=== PATIENT | male | born 1945 | race Caucasian/White ===

== ENCOUNTER → 2016-05-02 | Outpatient (CLI) | payer MEDICARE ==
[2016-05-02 09:50] LABS: Basophils % (A) 1 %; CH 32.6; CHCM 33.8; Eosinophils # (A) 0.1 k/uL (0-0.7); Eosinophils % (A) 2 %; HCT 47.9 % (39.0-53.0); HDW 2.43; HGB 15.5 gm/dL (13.0-17.5); Luc # (Auto) 0.08; Luc % (Auto) 1; Lymphocytes % (A) 17 %; MCH 31.3 pg (25.0-35.0); MCHC 32.4 g/dL (31.0-37.0); MCV 96.8 fL (80.0-100.0); Mean Platelet Volume 7.9; Monocytes # (A) 0.3 k/uL (0-1.0); Monocytes % (A) 6 %; Neutrophils # (A) 4.3 k/uL (1.3-7.7); Neutrophils % (A) 74 %; RBC 4.95 m/uL (4.30-5.90); RDW 12.7 % (11.5-15.5); WBC 5.7 k/uL (3.8-10.6); WBC (Perox) 5.62
[2016-05-02 10:52] LABS: ALT 38 U/L (21-72); AST 21 U/L (17-59); Alkaline Phosphatase 62 U/L (38-126); Anion Gap 9 mmol/L; Blood Urea Nitrogen 18 mg/dL (9-20); C Reactive Protein <5.0 mg/L (<10.0); Calcium 9.4 mg/dL (8.4-10.2); Carbon Dioxide 28 mmol/L (22-30); Chloride 105 mmol/L (98-107); Cholesterol 119 mg/dL (<200); Creatine Kinase 100 U/L (55-170); Glucose 162 mg/dL (74-99); HDL Cholesterol 38 mg/dL (40-60); Non-African American GFR(MDRD) >60 (>60 ml/min/1.73 sqM); Sodium 142 mmol/L (137-145); Total Bilirubin 0.5 mg/dL (0.2-1.3); Total Protein 6.7 g/dL (6.3-8.2); Triglycerides 117 mg/dL (<150)
[2016-05-02 11:14] LABS: Prostate Specific Antigen 0.43 ng/mL (0.00-4.00)
[2016-05-02 12:38] LABS: Erythrocyte Sedimentation Rate 2 mm/hr (0-15)
== END | disposition home or self-care (01) ==
LOC: LABWHC1 08:59
PROVIDERS: ATTEND Internal Medicine
DX: E11.9 Type 2 diabetes mellitus without complications (principal); E78.5 Hyperlipidemia, unspecified; I11.0 Hypertensive heart disease with heart failure; E55.9 Vitamin D deficiency, unspecified
CPT/HCPCS: 36415; 80053; 80061; 82306; 82550; 83036; 84153; 85025; 85652; 86140

== ENCOUNTER → 2016-09-01 | Outpatient (CLI) | payer MEDICARE ==
[2016-09-01 08:16] LABS: Hemoglobin A1C 6.9 % (4.2-6.1)
== END | disposition home or self-care (01) ==
LOC: LABWHC1 07:15
PROVIDERS: ATTEND Internal Medicine
DX: E11.9 Type 2 diabetes mellitus without complications (principal); E78.5 Hyperlipidemia, unspecified; E55.9 Vitamin D deficiency, unspecified
CPT/HCPCS: 36415; 82306; 82947; 83036

== ENCOUNTER → 2016-12-25 | Outpatient (CLI) | payer MEDICARE ==
[2016-12-25 12:57] LABS: Hemoglobin A1C 6.9 % (4.2-6.1)
== END | disposition home or self-care (01) ==
LOC: LABWHC1 09:36
PROVIDERS: ATTEND Internal Medicine
DX: E11.9 Type 2 diabetes mellitus without complications (principal)
CPT/HCPCS: 36415; 82947; 83036

== ENCOUNTER → 2017-08-19 | Outpatient (CLI) | payer MEDICARE ==
[2017-08-19 19:05] LABS: Hemoglobin A1C 7.4 % (4.0-6.0)
== END ==
LOC: LABWHC1 08:18
PROVIDERS: ATTEND Internal Medicine
DX: E11.9 Type 2 diabetes mellitus without complications (principal)
CPT/HCPCS: 36415; 82947; 83036

== ENCOUNTER → 2017-12-03 | Outpatient (CLI) | payer MEDICARE | END | disposition home or self-care (01) | LOC: LABPAT 13:14 | PROVIDERS: ATTEND Orthopaedic Surgery | DX: Z01.812 Encounter for preprocedural laboratory examination (principal) | CPT/HCPCS: 87070 ==

== ENCOUNTER → 2017-12-09 | Outpatient (CLI) | payer MEDICARE ==
[2017-12-09 16:11] LABS: Appearance,Urine Clear (Clear); Bilirubin,Urine Negative (Negative); Blood,Urine Negative (Negative); Color,Urine Yellow; Glucose,Urine (UA) Negative (Negative); HCT 46.1 % (39.0-53.0); HGB 14.9 gm/dL (13.0-17.5); Ketones,Urine Negative (Negative); Leukocyte Esterase,Urine Negative (Negative); MCHC 32.2 g/dL (31.0-37.0); MCV 96.1 fL (80.0-100.0); Mean Platelet Volume 6.5; Nitrite,Urine Negative (Negative); PH, Urine 5.5 (5.0-8.0); Platelet Count 213 k/uL (150-450); Protein,Urine Negative (Negative); RDW 12.7 % (11.5-15.5); Specific Gravity,Urine 1.023 (1.001-1.035); Urobilinogen,Urine <2.0 mg/dL (<2.0); WBC 7.9 k/uL (3.8-10.6)
[2017-12-09 16:19] LABS: Partial Thromboplastin Time 23.6 sec (22.0-30.0)
[2017-12-09 16:33] LABS: ALT 29 U/L (21-72); AST 21 U/L (17-59); Albumin 4.3 g/dL (3.5-5.0); Alkaline Phosphatase 72 U/L (38-126); Anion Gap 12 mmol/L; Blood Urea Nitrogen 25 mg/dL (9-20); Calcium 9.9 mg/dL (8.4-10.2); Carbon Dioxide 27 mmol/L (22-30); Chloride 104 mmol/L (98-107); Glucose 137 mg/dL (74-99); Potassium 4.8 mmol/L (3.5-5.1); Sodium 143 mmol/L (137-145); Total Bilirubin 0.3 mg/dL (0.2-1.3); Total Protein 6.9 g/dL (6.3-8.2)
== END | disposition home or self-care (01) ==
LOC: LABPAT 15:25
PROVIDERS: ATTEND Orthopaedic Surgery
DX: Z01.812 Encounter for preprocedural laboratory examination (principal); M16.12 Unilateral primary osteoarthritis, left hip
CPT/HCPCS: 36415; 80053; 81003; 85027; 85610; 85730

== ENCOUNTER 2017-12-14 07:39 | Inpatient (IN) | payer MEDICARE ==
[2017-12-08 15:34] VITALS: BMI 26.6
[~2017-12-14 07:39] MED LIST: ACETAMINOPHEN TAB 500 MG TAB PO ONE; DEXAMETHASONE SOD PHOSPHATE 10 MG/ML 1 ML VIAL IV ONE; HYDROmorphone 0.5 MG/0.5 ML SYRINGE IVP PRN; ONDANSETRON 4 MG/2 ML VIAL IVP ONE; ROPIVACAINE 246.25 MG, EPINEPHrine 0.5 MG, KETOROLAC 30 MG, cloNIDine HCL/PF 80 MCG, WA... MISCELLANE ONE; TRANEXAMIC ACID 1,000 MG in SODIUM CHLORIDE 0.9% 50 ML IVPB ONE; ceFAZolin IN SWFI 2 GM/20 ML SYRINGE IVP ONE
[2017-12-14] MEDS ORDERED: LIDOCAINE 1% 20 ML VIAL (10MG/ML) FOR IV START INTRADERMA ONE (08:29)
[2017-12-14] MEDS: LACTATED RINGERS 1,000 ML IV SCH (08:29)
[2017-12-14 08:33] LABS: Glucose,Whole Blood 158 mg/dL (75-99)
[2017-12-14] MEDS ORDERED: HYDROcodone/APAP 5-325MG 1 EACH TAB PO PRN ×2 (09:08)
[2017-12-14] MEDS ORDERED: ONDANSETRON 4 MG/2 ML VIAL IVP PRN (09:08)
[2017-12-14] MEDS ORDERED: DIAZEPAM 5 MG TAB PO PRN ×2 (09:08)
[2017-12-14] MEDS ORDERED: hydrOXYzine PAMOATE 25 MG CAP PO PRN (09:08)
[2017-12-14] MEDS ORDERED: NALOXONE 0.4 MG/ML 1 ML VIAL IV PRN (09:08)
[2017-12-14] MEDS ORDERED: HYDROmorphone 1 MG/ML 1 ML SYRINGE IVP PRN ×3 (09:08)
[2017-12-14] MEDS ORDERED: MAGNESIUM HYDROXIDE 2,400 MG/10 ML CUP PO PRN (09:08)
[2017-12-14] MEDS ORDERED: diphenhydrAMINE 50 MG/ML 1 ML VIAL ONE (09:45)
[2017-12-14] MEDS ORDERED: SODIUM CHLORIDE 0.9% IRRIG 1,000 ML BTL IRRIGATION ONE (09:45)
[2017-12-14] MEDS ORDERED: SODIUM CHLORIDE 0.9% 100 ML BAG ONE (09:45)
[2017-12-14] MEDS ORDERED: HEPARIN SODIUM,PORCINE 10,000 UNIT/ML 1 ML VIAL ONE (09:45)
[2017-12-14] MEDS ORDERED: MIDAZOLAM 2 MG/2 ML VIAL ONE (09:45)
[2017-12-14] MEDS ORDERED: fentaNYL (PF) 50 MCG/ML 2 ML AMP ONE (09:45)
[2017-12-14] MEDS ORDERED: TRANEXAMIC ACID 1,000 MG/10 ML VIAL ONE (09:45)
[2017-12-14] MEDS ORDERED: ceFAZolin 3,000 MG in SODIUM CHLORIDE 0.9% IRRIGATIO 3,000 ML IRRIGATION ONE (10:32)
[2017-12-14] MEDS ORDERED: LACTATED RINGERS 1,000 ML IV ONE (11:16)
--- NOTE | 2017-12-14 11:27 | P.OP ---
Date of Procedure: 12/14/17 Preoperative Diagnosis: Severe osteoarthritis left hip Postoperative Diagnosis: Severe osteoarthritis left hip Procedure(s) Performed: Left total hip arthroplasty with a direct anterior approach Implants: Owens and nephew Polarstem size 7 standard Owens & Nephew R3, 3 hole acetabular shell, 52 mm Owens [employer] Nephew reflection 6.5 mm cancellus screw, 20 mm, 25 mm Owens [employer] Nephew R3, XLPE 20 acetabular liner Owens & Nephew Oxinium femoral head 36 m, +4 All components were press-fit. The articulation is Oxinium on polyethylene. Anesthesia: spinal Surgeon: Koko Roman Heavy Machinery Assembler #1: Kylee Aviles Estimated Blood Loss (ml): 250 (55 mL returned with Cell Saver) Pathology: other (Femoral head) Condition: stable Disposition: PACU Indications for Procedure: After failure of conservative treatment we discussed the surgical and nonsurgical treatment options at length. Patient wishes to proceed with a total hip arthroplasty with a direct anterior approach. Complications specific to this procedure were discussed at length, including but not limited to infection, leg length discrepancy, dislocation, and nerve injury. Patient is aware of all these complications and informed consent was obtained Operative Findings: The operative findings are consistent with severe osteoarthritis of the left hip Description of Procedure: Patient was seen and evaluated in the preoperative area, consent was reviewed, and the surgical site was marked with a skin marker. Patient was then brought to the operating room and given prophylactic antibiotics intravenously. 1 g of Tranexamic acid was also given. A spinal anesthetic was administered by the anesthesia department. The patient was then placed on the Bessemer table with the bony prominences well-padded. The hip area was then prepped and draped in usual sterile fashion. A universal timeout was then performed, which confirmed the patient's name, surgical site, ALLERGIES, and procedure being performed. Next the incision site was located at 1 cm distal and 1 cm lateral to the anterior superior iliac spine. The skin and subcutaneous tissues were sharply incised. Incision was carefully dissected down to the fascia overlying the tensor fascia salo muscle. This fascia was then incised in line with the incision. Next, using blunt finger dissection, the tensor fascia salo muscle was dissected off its investing fascia. The muscle was then carefully retracted laterally with a cobra retractor over the lateral neck of the femur. Next, the circumflex vessels were identified and cauterized using the AquaMantis device. The anterior hip capsule was then exposed. The capsule was then opened and an inverted T fashion. Cobra retractors were then placed intracapsularly. The proximal femur was then visualized. The femoral neck was then osteotomized appropriate level above the lesser trochanter. Small amount of traction was placed with the Bessemer table. A small wedge of bone was then removed from the remaining femoral head. Next, using a corkscrew femoral head was easily removed from the acetabulum. On gross visual inspection, the femoral head had complete loss of articular cartilage in multiple periarticular osteophytes. Attention was then turned to the acetabulum. the acetabulum was exposed and any remaining labrum was excised. Sequential reaming of the acetabulum was performed using fluoroscopic guidance. When the appropriate size was reached, a trial was then placed. The position and fit of the trial was checked with fluoroscopy. The trial was then removed. Then, using fluoroscopic guidance, the final implant was impacted at 20 of anteversion and 40 of abduction, and fully seated in the acetabulum. 2 screws were then placed in the acetabulum. Again fluoroscopy was used to check position of the screws. Next, the liner was then impacted, with a 20 elevated liner located in the anterior superior quadrant. Component locking was confirmed. Attention was then directed to the femur. With the aid of the Bessemer table, the femur was externally rotated to approximately 130, extended, and abducted under the opposite leg. A side hook was then placed under the proximal femur, and the side hook elevator was used to elevate the proximal femur. Retractors were then placed. A capsular release was performed, as well as a release of the conjoined tendon, which afforded excellent visualization of the proximal femur. Next, a box osteotome was used to lateralize the proximal femur. A ecommerce merchandising manager was then used to locate the femoral canal. Sequential broaching was then performed with appropriate size which afforded excellent fixation in the proximal femur. A trial was then placed with appropriate head and neck, and the hip was gently reduced with the aid of the Bessemer table. Fluoroscopy was then used to check position of the components, as well as to ensure equal leg lengths. The hip was then gently dislocated and the trials were then removed. Final implants were then impacted and the hip was again reduced. Final fluoroscopic x-rays confirmed that the components were in anatomic position, as well as equal leg lengths. The hip was also taken through range of motion, and found to be stable. The hip was then copiously irrigated with antibiotic solution with pulsatile lavage. The hip was then irrigated with Irrisept solution. The soft tissues were then injected with a ropivacaine solution, which consisted of 246.25 mg of ropivacaine, 0.5 mg of epinephrine, 30 mg of Toradol, 80 g of clonidine, and 48.45 mL of sterile water, for a total of 100 mL of fluid injected. A second dose of 1 g of Tranexamic acid was also given. the fascia was then closed with 2-0 strata fix suture. The subcutaneous tissue was closed with 3-0 Vicryl. The subcuticular tissue was closed with 3-0 strata fix suture. The skin was then closed with Dermabond glue and a sterile silver dressing. The patient was then transferred to the recovery room in stable condition. The assistant professor of spanish LUNA Liang was required due to the complexity of surgery, and the need for skilled surgical coordinator for positioning, draping, exposure, retraction, and closure of the wound.
--- NOTE | 2017-12-14 12:03 | XR ---
EXAMINATION TYPE: XR Hip Limited LT DATE OF EXAM: 12/14/2017 COMPARISON: NONE HISTORY: Postop TECHNIQUE: One view submitted. FINDINGS: There is a prosthetic hip in near anatomic alignment. There is soft tissue edema and emphysema. IMPRESSION: 1. Postoperative change. Appears in near-anatomic alignment.
[2017-12-14 12:14] LABS: Glucose,Whole Blood 175 mg/dL (75-99)
--- NOTE | 2017-12-14 14:05 | FL ---
Fluoroscopy History: LEFT HIP REPLACEMENT 1 MIN 1 SEC FLUORO
--- NOTE | 2017-12-14 17:31 | P.CONS ---
History of Present Illness - Reason for Consult Consult date: 12/14/17 Medical management - History of Present Illness Dictation on the consult date of service 12/14/[address] Koko guzman orthopedic surgeon. Patient status post elective left total hip arthroplasty. With the underlying advanced degenerative osteoarthritis 72 years old white male , has been seen by Dr. Koko moore with the pain in his left Hip and subsequently scheduled for elective surgery. Due to his decreased mobility and pain. Patient with a history of diabetes mellitus type 2 on metformin, however during his hospital postoperative will be on insulin to scale., He had also past history of hyperlipidemia. And history of advanced degenerative osteoarthritis mainly the hips and the spine. Postoperative anticoagulation currently aspirin 325 mg twice a day. Orthopedic surgeon added to his rehabilitation to avoid DVT. Med rec evaluated and sign. Pain medication and the comfort by the orthopedic team and he is currently on Mobic and tramadol. Orthopedic., Vital sign is stable. On examination patient sitting on the chair he had the surgery at 10 AM today this afternoon he has no ill effect he went to the bathroom walking with a walker and no abdominal pain no nausea no vomiting no hematochezia or hematemesis or melena on the review of system no pain in the hip. On the review of the note of Dr. Koko guzman orthopedic surgeon indicating that he had a patient have severe osteoarthritis of the left hip and he had left total hip arthroplasty with the direct anterior approach and will reason severe osteoarthritis of the left hip. Vital sign indicating temperature 97.6 and pulse rate 72 per minute regular respiratory rate 14 blood pressure 123/73 stable with a mean arterial pressure 89 his oxygen is 99% on 3 L. HEENT the head was normocephalic and atraumatic pupils equal reactive conjunctivae bowel was pink sclera was nonicteric oropharynx was negative her natural teeth the neck was supple no JVD no thyromegaly no lymphadenopathy trachea midline. Chest was clear auscultation percussion and the heart PMI in the fifth intercostal space normal S1 and S2 no gallop abdomen is soft positive bowel sounds and extremities no edema and he able to put his feet on the ground and able to walk there is no edema in his site of the incision and there is no edema of the left foot. And the pulses is intac Neurologically is stable no numbness no tingling of the feet. Status assessment: Status post left anterior total arthroplasty anterior approach done on 2017. #2 diabetes mellitus2 currently controlled with the continuation of CBG POC and covered with insulin to scale. Number #3 according to the monitor there is blood pressure dropped to 99/98/99, postoperative however subsequently at the time seen his blood pressure 123/73 it is unclear if that affected his kidney was not and we will be obtaining BMP in a.m. History of hyperlipidemia. Patient stable general condition postoperative. #2 probably continuing his home medication #3 he may resume the metformin tomorrow #4 orthopedic has been handling the DVT prophylaxis and anticoagulation. With the use of only aspirin twice a day 325 mg. Probably if patient doing well he may be able to go home. Thank you Dr. Koko moore, for letting me participate in the care of Calvinwali MÉNDEZ. Past Medical History Past Medical History: Diabetes Mellitus, Hyperlipidemia History of Any Multi-Drug Resistant Organisms: None Reported Past Surgical History: Joint Replacement Additional Past Surgical History / Comment(s): right hip, left knee, rt bunionectomy Past Anesthesia/Blood Transfusion Reactions: No Reported Reaction Smoking Status: Never smoker - Past Family History Father Family Medical History: Cancer Additional Family Medical History / Comment(s): prostate,thyroid Brother(s) Family Medical History: Cancer Additional Family Medical History / Comment(s): prostate Medications and Allergies Home Medications Medication Instructions Recorded Confirmed Type Aspirin [Adult Low Dose Aspirin EC] 81 mg PO DAILY 12/08/17 12/14/17 History Atorvastatin [Lipitor] 20 mg PO HS 12/08/17 12/14/17 History Glucosam/Isaac-Msm1/C/Jacky/Bosw 1 tab PO DAILY 12/08/17 12/14/17 History [Glucosamine-Chondroitin Tablet] Ibuprofen [Motrin Ib] 200 mg PO Q6H PRN 12/08/17 12/14/17 History Multivitamins, Thera [Multivitamin 1 tab PO DAILY 12/08/17 12/14/17 History (formulary)] metFORMIN HCL 1,000 mg PO BID 12/08/17 12/14/17 History Allergies Allergy/AdvReac Type Severity Reaction Status Date / Time hydrocodone AdvReac "makes me Verified 12/14/17 16:05 loopy" Physical Exam Vitals: Vital Signs Temp Pulse Pulse Resp BP BP Pulse Ox 12/14/17 16:36 97.6 F 72 14 123/73 12/14/17 15:45 68 16 98/52 99 12/14/17 15:15 63 16 99/63 99 12/14/17 14:45 61 16 98/55 98 12/14/17 14:15 56 L 100 H 99/50 100 12/14/17 14:00 60 16 100/51 100 12/14/17 13:45 59 L 16 99/52 95 12/14/17 13:30 59 L 16 92/53 99 12/14/17 13:15 55 L 16 90/52 99 12/14/17 13:00 59 L 16 92/51 99 12/14/17 12:36 93/52 12/14/17 12:31 60 16 88/46 98 12/14/17 12:15 57 L 16 96/54 98 12/14/17 12:00 60 16 93/49 97 12/14/17 11:45 97.4 F L 68 18 92/58 96 12/14/17 08:14 98.0 F 68 18 137/74 97 Intake and Output 12/14/17 12/14/17 12/14/17 06:59 14:59 22:59 Intake Total 801 600 Output Total 250 Balance 551 600 Intake: IV 801 600 Output: Estimated Blood Loss 250 Results Labs: Abnormal Lab Results - Last 24 Hours (Table) 12/14/17 12/14/17 Range/Units 08:25 12:12 POC Glucose (mg/dL) 158 H 175 H (75-99) mg/dL
[2017-12-14] MEDS: traMADol 50 MG TAB PO PRN (17:50)
[2017-12-14] MEDS: ceFAZolin IN SWFI 2 GM/20 ML SYRINGE IVP SCH (17:51)
[2017-12-14 18:13] LABS: Glucose,Whole Blood 209 mg/dL (75-99)
[2017-12-14] MEDS: SODIUM CHLORIDE 0.9% 1,000 ML IV SCH (18:19)
[2017-12-14] MEDS: metFORMIN 500 MG TAB PO SCH (18:22)
[2017-12-14] MEDS: INSULIN ASPART 100 UNIT/ML 1 ML 10 ML VIAL SQ SCH (18:23)
[2017-12-14 20:12] LABS: Glucose,Whole Blood 256 mg/dL (75-99)
[2017-12-14] MEDS: ASPIRIN 325 MG TAB PO SCH (20:29)
[2017-12-14] MEDS ORDERED: ATORVASTATIN 20 MG TAB PO SCH (21:00)
[2017-12-14] MEDS ORDERED: SENNOSIDES-DOCUSATE SODIUM 1 EACH TAB PO SCH (21:00)
[2017-12-15] MEDS: ceFAZolin IN SWFI 2 GM/20 ML SYRINGE IVP SCH (00:39)
[2017-12-15] MEDS: SODIUM CHLORIDE 0.9% 1,000 ML IV SCH (00:40)
[2017-12-15] MEDS: LACTATED RINGERS 1,000 ML IV SCH (05:41)
[2017-12-15] MEDS: traMADol 50 MG TAB PO PRN ×2 (06:04→12:34)
[2017-12-15 07:12] LABS: Glucose,Whole Blood 258 mg/dL (75-99)
[2017-12-15 07:44] LABS: Anion Gap 7 mmol/L; Blood Urea Nitrogen 18 mg/dL (9-20); Calcium 8.3 mg/dL (8.4-10.2); Carbon Dioxide 26 mmol/L (22-30); Chloride 103 mmol/L (98-107); Glucose 229 mg/dL (74-99); Potassium 4.1 mmol/L (3.5-5.1); Sodium 136 mmol/L (137-145)
[2017-12-15 07:49] VITALS: BP 129/63; PULSE 86; RESP 12; TEMP 98.5
[2017-12-15 07:54] LABS: Basophils % (A) 0 %; Eosinophils % (A) 0 %; HCT 33.4 % (39.0-53.0); Lymphocytes # (A) 0.7 k/uL (1.0-4.8); Lymphocytes % (A) 8 %; MCH 31.5 pg (25.0-35.0); MCHC 33.2 g/dL (31.0-37.0); MCV 94.8 fL (80.0-100.0); Mean Platelet Volume 6.7; Monocytes # (A) 0.5 k/uL (0-1.0); Monocytes % (A) 7 %; Neutrophils # (A) 6.6 k/uL (1.3-7.7); Neutrophils % (A) 84 %; Platelet Count 168 k/uL (150-450); RBC 3.52 m/uL (4.30-5.90); RDW 12.5 % (11.5-15.5); WBC 7.9 k/uL (3.8-10.6)
[2017-12-15 07:59] LABS: HGB 11.1 gm/dL (13.0-17.5)
[2017-12-15] MEDS: INSULIN ASPART 100 UNIT/ML 1 ML 10 ML VIAL SQ SCH ×2 (08:02→13:14)
[2017-12-15] MEDS: metFORMIN 500 MG TAB PO SCH (08:03)
[2017-12-15] MEDS ORDERED: MULTIVITAMINS, THERA 1 EACH TAB PO SCH (09:00)
[2017-12-15] MEDS ORDERED: MELOXICAM 7.5 MG TAB PO SCH (09:00)
[2017-12-15] MEDS: ASPIRIN 325 MG TAB PO SCH (09:01)
[2017-12-15 11:49] LABS: Glucose,Whole Blood 213 mg/dL (75-99)
--- NOTE | 2017-12-15 12:31 | P.PN ---
Subjective Progress Note Date: 12/15/17 This is a dictation on the progress note date of service 12/15/[address] Hood Cantrell FACP on the follow-up. Patient seen and evaluated today with the stable general condition and stable vital sign able to use a walker. On discharge exam. HEENT negative oropharynx is normal head was normocephalic and atraumatic Neck supple no JVD no thyromegaly no lymphadenopathy. Chest clear to auscultation percussion no wheezes no rhonchi's. Heart PMI in the fifth intercostal space normal S1 and S2 no gallop compensated with good perfusion to the lower extremities. Abdomen soft positive bowel sounds positive no tenderness in the 4 quadrants. Extremities: The left hip total arthroplasty with the anterior approach associated with some pain expected. No edema and normal dorsalis pedis and posterior tibial with good perfusion no calf tenderness on the left or the right. Neurologically: No lateralizing sign and ambulatory with walker secondary the total left hip arthroplasty. Assessment: #1 diabetes mellitus type 2 stable. #2 status post left total hip arthroplasty with the underlying advanced degenerative osteoarthritis and was done in the upper and anterior approach. #3 blood pressure is currently stable. Plan and recommendation. Clinically patient stable for discharge home with the association of the rehabilitation at home and for further follow-up with Dr. Koko moore orthopedic surgeon as outpatient. Orthopedic team will be taking care of the anticoagulation with the understanding patient on aspirin 325 mg twice a day versus other modality as Coumadin or novel anticoagulation as an requests result. We'll leave talk to the orthopedic. Also they will manage the pain control in the left hip post operative. 4 medical standpoint of view patient is ready to go home. Orthopedic decision. Objective - Vital Signs Vital signs: Vital Signs Temp 98.5 F 12/15/17 07:00 Pulse 86 12/15/17 07:00 Resp 12 12/15/17 07:00 BP 129/63 12/15/17 07:00 Pulse Ox 95 12/15/17 07:00 Intake & Output 12/14/17 12/15/17 12/15/17 18:59 06:59 18:59 Intake Total 1401 1725 Output Total 250 300 Balance 1151 1425 Weight 81.647 kg Intake: IV 1401 Intake, IV Titration 685 Amount Sodium Chloride 0.9% 1, 685 000 ml @ 65 mls/hr IV . [id number] [facility] Rx#:[id number] Oral 1040 Output: Urine 300 Estimated Blood Loss 250 Other: Voiding Method Toilet # Voids 1 3 - Labs CBC & Chem 7: 12/15/17 06:49 12/15/17 06:49 Labs: Abnormal Lab Results - Last 24 Hours (Table) 12/14/17 12/14/17 12/15/17 Range/Units 17:52 20:10 06:49 RBC 3.52 L (4.30-5.90) m/uL Hgb 11.1 L D (13.0-17.5) gm/dL Hct 33.4 L (39.0-53.0) % Lymphocytes # 0.7 L (1.0-4.8) k/uL Sodium (137-145) mmol/L Glucose (74-99) mg/dL POC Glucose (mg/dL) 209 H 256 H (75-99) mg/dL Calcium (8.4-10.2) mg/dL 12/15/17 12/15/17 12/15/17 Range/Units 06:49 07:08 11:45 RBC (4.30-5.90) m/uL Hgb (13.0-17.5) gm/dL Hct (39.0-53.0) % Lymphocytes # (1.0-4.8) k/uL Sodium 136 L (137-145) mmol/L Glucose 229 H (74-99) mg/dL POC Glucose (mg/dL) 258 H 213 H (75-99) mg/dL Calcium 8.3 L (8.4-10.2) mg/dL
[2017-12-15] MEDS ORDERED: traMADol 50 MG TAB PO STA (12:40)
--- NOTE | 2017-12-15 12:57 | P.DS ---
Providers Date of admission: 12/14/17 07:39 Expected date of discharge: 12/15/17 Attending physician: Koko Roman Consults: 12/14/17 09:08 Consult Physician Routine Consulting Provider: Lee Carson Consult Reason/Comments: medical management Do you want consulting provider notified?: Yes Primary care physician: Lee Carson - Discharge Diagnosis(es) (1) Primary osteoarthritis of left hip Current Visit: Yes Status: Acute (2) S/P total hip arthroplasty Current Visit: Yes Status: Acute Hospital Course: This is a 72-year-old male with known history of degenerative arthritis of the left hip. The patient presents for evaluation. After discussion and consideration patient elects to proceed with total hip arthroplasty. The patient is seen preoperatively by Dr. Roman and medically cleared for surgery by their primary care physician. Patient is admitted to [facility] on 12/14/2017 for total hip arthroplasty. The procedures performed without complication or sequelae. The patient is doing well postoperatively. Labs and vital signs are stable on day of discharge. On day of discharge patient's hip incision is healing well. There is minimal erythema. There is no drainage noted at this time. There is minimal soft tissue swelling to the hip and thigh. Patient has full foot and ankle motion without difficulty or pain. Neurovascular status to the left lower extremity is intact. Patient is discharged home in good condition. Please see med rec for accurate list of home medications. Plan - Discharge Summary Discharge Rx Participant: No New Discharge Prescriptions: New Aspirin 325 mg PO BID tab Sennosides-Docusate Sodium [Senokot-S] 2 each PO HS tab Aspirin 325 mg PO BID #60 tab traMADol HCl [Ultram] 1 - 2 tab PO Q6H PRN #56 tab PRN Reason: Pain Continue metFORMIN HCL 1,000 mg PO BID Multivitamins, Thera [Multivitamin (formulary)] 1 tab PO DAILY Atorvastatin [Lipitor] 20 mg PO HS Ibuprofen [Motrin Ib] 200 mg PO Q6H PRN PRN Reason: Pain Glucosam/Isaac-Msm1/C/Jacky/Bosw [Glucosamine-Chondroitin Tablet] 1 tab PO DAILY Discontinued Aspirin [Adult Low Dose Aspirin EC] 81 mg PO DAILY Discharge Medication List Atorvastatin [Lipitor] 20 mg PO HS 12/08/17 [History] Glucosam/Isaac-Msm1/C/Jacky/Bosw [Glucosamine-Chondroitin Tablet] 1 tab PO DAILY 12/08/17 [History] Ibuprofen [Motrin Ib] 200 mg PO Q6H PRN 12/08/17 [History] Multivitamins, Thera [Multivitamin (formulary)] 1 tab PO DAILY 12/08/17 [History ] metFORMIN HCL 1,000 mg PO BID 12/08/17 [History] Aspirin 325 mg PO BID tab 12/15/17 [Rx] Aspirin 325 mg PO BID #60 tab 12/15/17 [Rx] Sennosides-Docusate Sodium [Senokot-S] 2 each PO HS tab 12/15/17 [Rx] traMADol HCl [Ultram] 1 - 2 tab PO Q6H PRN #56 tab 12/15/17 [Rx] Follow up Appointment(s)/Referral(s): [facility], [NON-STAFF] - Koko Roman DO [Doctor of Osteopathic Medicine] - 12/30/17 1:30 pm Lee Carson MD [Primary Care Provider] - 12/22/17 9:40 am Activity/Diet/Wound Care/Special Instructions: Weightbearing as tolerated with walker Leave dressing intact. Dressing may be removed by home care nurse in 10 days. May shower with dressing on. Follow-up with [facility] in 2 weeks, please call with any questions or concerns [phone] Discharge Disposition: HOME WITH HOME HEALTH SERVICES
[2017-12-15 14:20] LABS: Hemoglobin A1C 7.6 % (4.0-6.0)
== END 2017-12-15 14:25 | disposition home health service (06) | DRG 470 ==
LOC: 2ORMAIN 07:39 → 3SUR 16:11
PROVIDERS: ADMIT Orthopaedic Surgery; ATTEND Orthopaedic Surgery
PROC: 0SRB06A Replacement of Left Hip Joint with Oxidized Zirconium on Polyethylene Synthetic Substitute, Uncemented, Open Approach (ICD-10-PCS; principal; 2017-12-14 09:50)
DX: M16.12 Unilateral primary osteoarthritis, left hip (principal); E11.9 Type 2 diabetes mellitus without complications; E78.5 Hyperlipidemia, unspecified; Z79.82 Long term (current) use of aspirin; Z79.84 Long term (current) use of oral hypoglycemic drugs; Z79.899 Other long term (current) drug therapy; Z80.42 Family history of malignant neoplasm of prostate; Z80.8 Family history of malignant neoplasm of other organs or systems; R03.1 Nonspecific low blood-pressure reading; M47.9 Spondylosis, unspecified; Z88.5 Allergy status to narcotic agent
CPT/HCPCS: 73501; 80048; 83036; 85025; 86850; 86891; 86900; 86901; 88300

== ENCOUNTER → 2017-12-18 | Outpatient (CLI) | payer MEDICARE ==
[2017-12-18 08:47] LABS: Anion Gap 11 mmol/L; Blood Urea Nitrogen 13 mg/dL (9-20); Calcium 8.9 mg/dL (8.4-10.2); Carbon Dioxide 28 mmol/L (22-30); Chloride 100 mmol/L (98-107); Glucose 164 mg/dL (74-99); Potassium 4.1 mmol/L (3.5-5.1); Sodium 139 mmol/L (137-145)
[2017-12-18 17:15] LABS: Hemoglobin A1C 7.1 % (4.0-6.0)
== END | disposition home or self-care (01) ==
LOC: LABWHC1 07:49
PROVIDERS: ATTEND Internal Medicine
DX: E11.9 Type 2 diabetes mellitus without complications (principal); E87.8 Other disorders of electrolyte and fluid balance, not elsewhere classified
CPT/HCPCS: 36415; 80048; 83036

== ENCOUNTER → 2018-05-04 | Outpatient (CLI) | payer MEDICARE ==
[2018-05-04 08:53] LABS: Basophils % (A) 0 %; Eosinophils # (A) 0.1 k/uL (0-0.7); Eosinophils % (A) 1 %; HCT 46.1 % (39.0-53.0); HGB 14.7 gm/dL (13.0-17.5); Lymphocytes # (A) 0.9 k/uL (1.0-4.8); Lymphocytes % (A) 13 %; MCH 29.9 pg (25.0-35.0); MCHC 31.9 g/dL (31.0-37.0); MCV 93.6 fL (80.0-100.0); Mean Platelet Volume 7.2; Monocytes # (A) 0.3 k/uL (0-1.0); Monocytes % (A) 5 %; Neutrophils # (A) 5.1 k/uL (1.3-7.7); Neutrophils % (A) 79 %; Platelet Count 203 k/uL (150-450); RBC 4.93 m/uL (4.30-5.90); RDW 13.5 % (11.5-15.5); WBC 6.4 k/uL (3.8-10.6)
[2018-05-04 11:11] LABS: Erythrocyte Sedimentation Rate 2 mm/hr (0-15)
[2018-05-04 16:45] LABS: ALT 18 U/L (10-49); AST 19 U/L (14-35); Albumin/Globulin Ratio 2.53 (1.60-3.17); Alkaline Phosphatase 72 U/L (41-126); C Reactive Protein <0.4 mg/dL (0.0-0.8); Calcium 9.4 mg/dL (8.7-10.3); Carbon Dioxide 26.4 mmol/L (21.6-31.8); Chloride 107 mmol/L (96-109); Cholesterol 118 mg/dL (0-200); Creatine Kinase 74 U/L (35-257); Globulin 1.7 g/dL (1.6-3.3); Glucose 180 mg/dL (70-110); Potassium 4.4 mmol/L (3.5-5.5); Sodium 141 mmol/L (135-145); Total Bilirubin 0.5 mg/dL (0.3-1.2)
[2018-05-04 16:49] LABS: Hemoglobin A1C 8.2 % (4.0-6.0)
== END | disposition home or self-care (01) ==
LOC: LABWHC1 07:34
PROVIDERS: ATTEND Internal Medicine
DX: E78.5 Hyperlipidemia, unspecified (principal); E55.9 Vitamin D deficiency, unspecified; D64.9 Anemia, unspecified; E11.9 Type 2 diabetes mellitus without complications; N40.0 Benign prostatic hyperplasia without lower urinary tract symptoms
CPT/HCPCS: 36415; 80053; 80061; 82306; 82550; 83036; 84153; 85025; 85652; 86140

== ENCOUNTER → 2018-09-01 | Outpatient (CLI) | payer MEDICARE ==
[2018-09-01 17:07] LABS: Hemoglobin A1C 8.5 % (4.0-6.0)
== END | disposition home or self-care (01) ==
LOC: LABWHC1 08:20
PROVIDERS: ATTEND Internal Medicine
DX: E11.9 Type 2 diabetes mellitus without complications (principal)
CPT/HCPCS: 36415; 82947; 83036

== ENCOUNTER → 2018-12-03 | Outpatient (CLI) | payer MEDICARE ==
[2018-12-03 11:55] LABS: African American GFR (CKD) 98.5 (60.0-200.0); BUN/Creat Ratio 21.11 Ratio (12.00-20.00); Calcium 9.4 mg/dL (8.7-10.3); Potassium 4.4 mmol/L (3.5-5.5)
[2018-12-03 14:30] LABS: Hemoglobin A1C 7.4 % (4.0-6.0)
== END | disposition home or self-care (01) ==
LOC: LABWHC1 07:50
PROVIDERS: ATTEND Internal Medicine
DX: E11.65 Type 2 diabetes mellitus with hyperglycemia (principal); E87.8 Other disorders of electrolyte and fluid balance, not elsewhere classified
CPT/HCPCS: 36415; 80048; 83036

== ENCOUNTER → 2019-05-06 | Outpatient (CLI) | payer MEDICARE ==
[2019-05-06 07:51] LABS: Basophils % (A) 0 %; Eosinophils # (A) 0.1 k/uL (0-0.7); Eosinophils % (A) 2 %; HCT 44.2 % (39.0-53.0); Lymphocytes # (A) 0.9 k/uL (1.0-4.8); Lymphocytes % (A) 14 %; MCH 32.7 pg (25.0-35.0); MCHC 33.9 g/dL (31.0-37.0); MCV 96.4 fL (80.0-100.0); Mean Platelet Volume 7.6; Monocytes # (A) 0.3 k/uL (0-1.0); Monocytes % (A) 5 %; Neutrophils # (A) 5.2 k/uL (1.3-7.7); Neutrophils % (A) 78 %; Platelet Count 217 k/uL (150-450); RBC 4.58 m/uL (4.30-5.90); RDW 12.1 % (11.5-15.5); WBC 6.7 k/uL (3.8-10.6)
[2019-05-06 11:37] LABS: Erythrocyte Sedimentation Rate 2 mm/hr (0-15)
[2019-05-06 17:59] LABS: Urine Creatinine 80.7 mg/dL
[2019-05-06 18:02] LABS: ALT 15 U/L (10-49); AST 18 U/L (14-35); African American GFR (CKD) 98.5 (60.0-200.0); Albumin/Globulin Ratio 2.93 (1.60-3.17); Alkaline Phosphatase 79 U/L (41-126); BUN/Creat Ratio 22.22 Ratio (12.00-20.00); C Reactive Protein <0.4 mg/dL (0.0-0.8); Calcium 9.3 mg/dL (8.7-10.3); Carbon Dioxide 26.4 mmol/L (21.6-31.8); Chloride 106 mmol/L (96-109); Chol/HDL Ratio 3.02; Cholesterol 127 mg/dL (0-200); Creatine Kinase 86 U/L (35-257); Globulin 1.5 g/dL (1.6-3.3); Glucose 231 mg/dL (70-110); LDL Cholesterol,Calculated 71.4 mg/dL (0.0-131.0); Potassium 4.3 mmol/L (3.5-5.5); Sodium 141 mmol/L (135-145); Total Bilirubin 0.5 mg/dL (0.3-1.2); Total Protein 5.9 g/dL (6.2-8.2)
== END | disposition home or self-care (01) ==
LOC: LABWHC1 07:20
PROVIDERS: ATTEND Internal Medicine
DX: N40.0 Benign prostatic hyperplasia without lower urinary tract symptoms (principal); I10 Essential (primary) hypertension; E11.65 Type 2 diabetes mellitus with hyperglycemia; M81.0 Age-related osteoporosis without current pathological fracture; E78.5 Hyperlipidemia, unspecified; E87.8 Other disorders of electrolyte and fluid balance, not elsewhere classified
CPT/HCPCS: 36415; 80053; 80061; 82043; 82550; 82570; 83036; 84153; 85025; 85652; 86140

== ENCOUNTER → 2019-08-30 | Outpatient (CLI) | payer MEDICARE ==
[2019-08-30 18:03] LABS: African American GFR (CKD) 97.9 (60.0-200.0); Anion Gap 7.6 mmol/L (4.00-12.00); BUN/Creat Ratio 21.11 Ratio (12.00-20.00); Calcium 9.5 mg/dL (8.7-10.3); Carbon Dioxide 26.4 mmol/L (21.6-31.8); Non-African American GFR(CKD) 84.4 (60.0-200.0); Potassium 4.6 mmol/L (3.5-5.5)
[2019-08-30 18:09] LABS: Hemoglobin A1C 7.4 % (4.0-6.0)
== END | disposition home or self-care (01) ==
LOC: LABWHC1 08:22
PROVIDERS: ATTEND Internal Medicine
DX: E87.8 Other disorders of electrolyte and fluid balance, not elsewhere classified (principal); E11.65 Type 2 diabetes mellitus with hyperglycemia
CPT/HCPCS: 36415; 80048; 83036; 84450; 84460

== ENCOUNTER → 2020-01-05 | Outpatient (CLI) | payer MEDICARE ==
[2020-01-05 17:13] LABS: Hemoglobin A1C 7.4 % (4.0-6.0)
== END | disposition home or self-care (01) ==
LOC: LABWHC1 09:11
PROVIDERS: ATTEND Internal Medicine
DX: E11.65 Type 2 diabetes mellitus with hyperglycemia (principal)
CPT/HCPCS: 36415; 82947; 83036

== ENCOUNTER → 2020-05-08 | Outpatient (CLI) | payer MEDICARE ==
[2020-05-08 11:35] LABS: Basophils # (A) 0.04 X 10*3/uL (0.00-0.10); Basophils % (A) 0.6 %; Eosinophils # (A) 0.16 X 10*3/uL (0.04-0.35); Eosinophils % (A) 2.6 %; HCT 42.9 % (39.6-50.0); HGB 14.1 g/dL (13.0-17.0); Lymphocytes # (A) 0.86 X 10*3/uL (0.90-5.00); Lymphocytes % (A) 13.8 %; MCH 32.2 pg (27.0-32.0); MCHC 32.9 g/dL (32.0-37.0); MCV 97.9 fL (80.0-97.0); Monocytes # (A) 0.45 X 10*3/uL (0.20-1.00); Monocytes % (A) 7.2 %; Neutrophils # (A) 4.69 X 10*3/uL (1.80-7.70); Neutrophils % (A) 75.6 %; Platelet Count 202 X 10*3/uL (140-440); RBC 4.38 X 10*6/uL (4.40-5.60); RDW 13.1 % (11.5-14.5); WBC 6.21 X 10*3/uL (4.50-10.00)
[2020-05-08 13:58] LABS: Hemoglobin A1C 7.3 % (4.0-6.0)
[2020-05-08 16:17] LABS: ALT 20 U/L (10-49); AST 20 U/L (14-35); African American GFR (CKD) 97.9 (60.0-200.0); Albumin/Globulin Ratio 3.29 (1.60-3.17); Alkaline Phosphatase 71 U/L (41-126); BUN/Creat Ratio 22.22 Ratio (12.00-20.00); C Reactive Protein <0.4 mg/dL (0.0-0.8); Carbon Dioxide 31.4 mmol/L (21.6-31.8); Chloride 106 mmol/L (96-109); Chol/HDL Ratio 2.48; Cholesterol 114 mg/dL (0-200); Creatine Kinase 127 U/L (35-257); Globulin 1.4 g/dL (1.6-3.3); Glucose 174 mg/dL (70-110); LDL Cholesterol,Calculated 56.2 mg/dL (0.0-131.0); Non-African American GFR(CKD) 84.4 (60.0-200.0); Potassium 4.3 mmol/L (3.5-5.5); Prostate Specific Antigen 0.4 ng/mL (0.0-6.5); Sodium 141 mmol/L (135-145); Total Bilirubin 0.4 mg/dL (0.3-1.2)
[2020-05-08 16:30] LABS: Erythrocyte Sedimentation Rate 4 mm/Hr (0-20)
== END | disposition home or self-care (01) ==
LOC: LABWHC1 07:56
PROVIDERS: ATTEND Internal Medicine
DX: Z00.00 Encounter for general adult medical examination without abnormal findings (principal); E11.65 Type 2 diabetes mellitus with hyperglycemia; E78.5 Hyperlipidemia, unspecified; E55.9 Vitamin D deficiency, unspecified; N40.0 Benign prostatic hyperplasia without lower urinary tract symptoms
CPT/HCPCS: 36415; 80053; 80061; 82306; 82550; 83036; 84153; 85025; 85652; 86140

== ENCOUNTER → 2020-11-21 | Outpatient (CLI) | payer MEDICARE ==
[2020-11-21 12:46] LABS: African American GFR (CKD) 97.2 (60.0-200.0); Anion Gap 9.1 mmol/L (4.00-12.00); BUN/Creat Ratio 24.44 Ratio (12.00-20.00); Calcium 9.4 mg/dL (8.7-10.3); Carbon Dioxide 26.9 mmol/L (21.6-31.8); Non-African American GFR(CKD) 83.8 (60.0-200.0); Potassium 4.4 mmol/L (3.5-5.5)
[2020-11-21 15:36] LABS: Hemoglobin A1C 7.6 % (4.0-6.0)
[2020-11-21 21:33] LABS: Urine Creatinine 93.5 mg/dL
== END | disposition home or self-care (01) ==
LOC: LABWHC1 07:31
PROVIDERS: ATTEND Internal Medicine
DX: E11.65 Type 2 diabetes mellitus with hyperglycemia (principal)
CPT/HCPCS: 36415; 80048; 82043; 82570; 83036

== ENCOUNTER → 2021-08-27 | Outpatient (CLI) | payer MEDICARE | END | disposition home or self-care (01) | LOC: LABWHC1 07:32 | PROVIDERS: ATTEND Internal Medicine | DX: E11.65 Type 2 diabetes mellitus with hyperglycemia (principal) | CPT/HCPCS: 36415; 82947; 83036 ==

== ENCOUNTER → 2021-12-17 | Outpatient (CLI) | payer MEDICARE ==
[2021-12-17 10:31] LABS: African American GFR (CKD) 99.7 (60.0-200.0); Anion Gap 9.4 mmol/L (10.00-18.00); BUN/Creat Ratio 23.8 Ratio (12.00-20.00); Blood Urea Nitrogen 19.8 mg/dL (9.0-27.0); Calcium 9.5 mg/dL (8.7-10.3); Carbon Dioxide 26.9 mmol/L (20.0-27.5); Potassium 4.4 mmol/L (3.5-5.5)
== END | disposition home or self-care (01) ==
LOC: LABWHC1 07:33
PROVIDERS: ATTEND Internal Medicine
DX: E11.65 Type 2 diabetes mellitus with hyperglycemia (principal); E87.8 Other disorders of electrolyte and fluid balance, not elsewhere classified
CPT/HCPCS: 36415; 80048; 83036

== ENCOUNTER → 2022-02-25 | Outpatient (CLI) | payer MEDICARE ==
--- NOTE | 2022-02-25 14:27 | XR ---
EXAMINATION TYPE: XR chest 2V DATE OF EXAM: 02/25/2022 COMPARISON: NONE HISTORY: 76-year-old male with cough. TECHNIQUE: Frontal and lateral views of the chest are obtained. FINDINGS: There is no focal air space opacity, pleural effusion, or pneumothorax seen. The cardiac silhouette size is within normal limits. The osseous structures are intact. IMPRESSION: No acute cardiopulmonary process.
== END | disposition home or self-care (01) ==
LOC: RADXRMAIN 10:26
PROVIDERS: ATTEND Internal Medicine
DX: R05.9 Cough, unspecified (principal)
CPT/HCPCS: 71046

== ENCOUNTER → 2022-08-26 | Outpatient (CLI) | payer MEDICARE | END | disposition home or self-care (01) | LOC: LABWHC1 08:32 | PROVIDERS: ATTEND Internal Medicine | DX: E11.65 Type 2 diabetes mellitus with hyperglycemia (principal) | CPT/HCPCS: 36415; 83036 ==

== ENCOUNTER → 2022-11-01 | Outpatient (CLI) | payer MEDICARE ==
[2022-11-01 13:29] LABS: Basophils # (A) 0.04 X 10*3/uL (0.00-0.10); Basophils % (A) 0.4 %; Eosinophils # (A) 0.28 X 10*3/uL (0.04-0.35); Eosinophils % (A) 2.6 %; HCT 40.7 % (39.6-50.0); HGB 13.3 d/dL (13.0-17.0); Lymphocytes # (A) 0.95 X 10*3/uL (0.90-5.00); Lymphocytes % (A) 8.9 %; MCH 31.8 pg (27.0-32.0); MCHC 32.7 d/dL (32.0-37.0); MCV 97.4 FL (80.0-97.0); Mean Platelet Volume 9.7 FL (9.5-12.2); Monocytes # (A) 0.79 X 10*3/uL (0.20-1.00); Monocytes % (A) 7.4 %; NRBC Per 100 WBC 0 X 10*3/uL (0.00-0.01); Platelet Count 309 X 10*3/uL (140-440); RBC 4.18 X 10*6/uL (4.40-5.60); RDW 12.7 % (11.5-14.5); WBC 10.73 X 10*3/uL (4.50-10.00)
[2022-11-01 13:33] LABS: BUN/Creat Ratio 28.14 Ratio (12.00-20.00); Blood Urea Nitrogen 19.7 mg/dL (9.0-27.0); Calcium 9.6 mg/dL (8.7-10.3); Carbon Dioxide 26.7 mmol/L (21.6-31.8); Chloride 104 mmol/L (96-109); Creatine Kinase 76 U/L (35-257); Glucose 206 mg/dL (70-110); Magnesium 1.9 mg/dL (1.5-2.4); Potassium 4.8 mmol/L (3.5-5.5); Sodium 140 mmol/L (135-145)
[2022-11-01 14:15] LABS: Erythrocyte Sedimentation Rate 28 mm/Hr (0-20)
== END | disposition home or self-care (01) ==
LOC: LABWHC1 08:11
PROVIDERS: ATTEND Internal Medicine
DX: Z00.00 Encounter for general adult medical examination without abnormal findings (principal); E78.5 Hyperlipidemia, unspecified; E11.9 Type 2 diabetes mellitus without complications; I11.9 Hypertensive heart disease without heart failure
CPT/HCPCS: 36415; 80048; 82533; 82550; 83036; 83735; 84100; 84443; 85025; 85652; 86140

== ENCOUNTER → 2023-03-02 | Outpatient (CLI) | payer MEDICARE ==
[2023-03-02 11:01] LABS: BUN/Creat Ratio 21.38 Ratio (12.00-20.00); Blood Urea Nitrogen 17.1 mg/dL (9.0-27.0); Calcium 9.1 mg/dL (8.7-10.3); Carbon Dioxide 27.2 mmol/L (21.6-31.8); Chloride 106 mmol/L (96-109); Glucose 125 mg/dL (70-110); Potassium 4.2 mmol/L (3.5-5.5); Sodium 141 mmol/L (135-145)
== END | disposition home or self-care (01) ==
LOC: LABWHC1 07:40
PROVIDERS: ATTEND Internal Medicine
DX: E11.65 Type 2 diabetes mellitus with hyperglycemia (principal)
CPT/HCPCS: 36415; 80048; 83036

== ENCOUNTER → 2023-07-01 | Outpatient (CLI) | payer MEDICARE ==
[2023-07-01 11:26] LABS: BUN/Creat Ratio 26.88 Ratio (12.00-20.00); Blood Urea Nitrogen 21.5 mg/dL (9.0-27.0); Calcium 9.7 mg/dL (8.7-10.3); Chloride 104 mmol/L (96-109); Glucose 148 mg/dL (70-110); Potassium 4.8 mmol/L (3.5-5.5); Sodium 142 mmol/L (135-145)
== END | disposition home or self-care (01) ==
LOC: LABWHC1 07:57
PROVIDERS: ATTEND Internal Medicine
DX: E11.9 Type 2 diabetes mellitus without complications (principal)
CPT/HCPCS: 36415; 80048; 83036

== ENCOUNTER → 2023-09-01 | Outpatient (CLI) | payer MEDICARE ==
[2023-09-01 15:08] LABS: Basophils # (A) 0.02 X 10*3/uL (0.00-0.10); Basophils % (A) 0.3 %; Eosinophils # (A) 0.12 X 10*3/uL (0.04-0.35); Eosinophils % (A) 1.8 %; HGB 13.9 g/dL (13.0-17.0); Lymphocytes # (A) 1.07 X 10*3/uL (0.90-5.00); Lymphocytes % (A) 16.3 %; MCH 32.6 pg (27.0-32.0); MCHC 33.1 g/dL (32.0-37.0); MCV 98.6 FL (80.0-97.0); Mean Platelet Volume 9.9 FL (9.5-12.2); Monocytes # (A) 0.57 X 10*3/uL (0.20-1.00); Monocytes % (A) 8.7 %; NRBC Per 100 WBC 0 X 10*3/uL (0.00-0.01); Neutrophils # (A) 4.74 X 10*3/uL (1.80-7.70); Neutrophils % (A) 72.4 %; Platelet Count 252 X 10*3/uL (140-440); RBC 4.26 X 10*6/uL (4.40-5.60); RDW 12.9 % (11.5-14.5); WBC 6.55 X 10*3/uL (4.50-10.00)
[2023-09-01 15:51] LABS: Appearance,Urine Clear (Clear); Bilirubin,Urine Negative (Negative); Blood,Urine Negative (Negative); Color,Urine Yellow (Yellow); Ketones,Urine Negative (Negative); Nitrite,Urine Negative (Negative); PH, Urine 6.5
[2023-09-01 15:56] LABS: % Iron Saturation 30.42 (15.00-50.00); ALT 21 U/L (10-49); AST 23 U/L (14-35); Albumin 4.4 g/dL (3.8-4.9); Albumin/Globulin Ratio 2.32 Ratio (1.60-3.17); Alkaline Phosphatase 83 U/L (41-126); Blood Urea Nitrogen 21.2 mg/dL (9.0-27.0); C Reactive Protein <0.30 mg/dL (0.00-0.80); Calcium 9.6 mg/dL (8.7-10.3); Carbon Dioxide 25.2 mmol/L (21.6-31.8); Chloride 104 mmol/L (96-109); Chol/HDL Ratio 2.72 Ratio; Creatine Kinase 124 U/L (35-257); Ferritin 75.5 ng/mL (22.0-322.0); Globulin 1.9 g/dL (1.6-3.3); Glucose 154 mg/dL (70-110); Iron 101 UG/DL (65-175); LDL Cholesterol,Calculated 66.8 mg/dL (0.0-131.0); Magnesium 1.8 mg/dL (1.5-2.4); Phosphorus 2.8 mg/dL (2.4-5.1); Potassium 4.5 mmol/L (3.5-5.5); Prostate Specific Antigen 0.58 ng/mL (0.000-6.500); Sodium 141 mmol/L (135-145); Total Bilirubin 0.5 mg/dL (0.3-1.2); Total Iron Binding Capacity 332 UG/DL (228-460); Total Protein 6.3 g/dL (6.2-8.2)
[2023-09-01 16:07] LABS: Erythrocyte Sedimentation Rate 8 mm/Hr (0-20)
[2023-09-01 18:01] LABS: Microalbumin Creatinine Ratio <11 mg/g Cr (0-30)
== END | disposition home or self-care (01) ==
LOC: LABWHC1 08:23
PROVIDERS: ATTEND Internal Medicine
DX: Z00.00 Encounter for general adult medical examination without abnormal findings (principal); D64.9 Anemia, unspecified; N40.0 Benign prostatic hyperplasia without lower urinary tract symptoms; E78.5 Hyperlipidemia, unspecified; E11.65 Type 2 diabetes mellitus with hyperglycemia; E03.9 Hypothyroidism, unspecified; E55.9 Vitamin D deficiency, unspecified; M81.0 Age-related osteoporosis without current pathological fracture; R80.9 Proteinuria, unspecified
CPT/HCPCS: 36415; 80053; 80061; 81003; 82043; 82306; 82550; 82570; 82728; 83036; 83540; 83550; 83735; 84100; 84153; 84443; 85025; 85652; 86140

== ENCOUNTER → 2024-01-12 | Outpatient (CLI) | payer MEDICARE | END | disposition home or self-care (01) | LOC: LABWHC1 09:05 | PROVIDERS: ATTEND Internal Medicine | DX: E11.65 Type 2 diabetes mellitus with hyperglycemia (principal) | CPT/HCPCS: 36415; 82947; 83036 ==

== ENCOUNTER → 2024-05-03 | Outpatient (CLI) | payer MEDICARE ==
[2024-05-03 12:26] LABS: Creatinine,Urine Random 68.1 mg/dL
[2024-05-03 19:25] LABS: Microalbumin Creatinine Ratio <16 mg/g Cr (0-30); Urine Creatinine 74.4 mg/dL (39.0-259.0)
[2024-05-03 19:38] LABS: BUN/Creat Ratio 28.11 Ratio (12.00-20.00); Blood Urea Nitrogen 25.3 mg/dL (9.0-27.0); Calcium 9.4 mg/dL (8.7-10.3); Carbon Dioxide 26.9 mmol/L (21.6-31.8); Chloride 104 mmol/L (96-109); Glucose 152 mg/dL (70-110); Potassium 5.5 mmol/L (3.5-5.5); Sodium 140 mmol/L (135-145)
== END | disposition home or self-care (01) ==
LOC: LABWHC1 09:49
PROVIDERS: ATTEND Internal Medicine
DX: I10 Essential (primary) hypertension (principal); E11.9 Type 2 diabetes mellitus without complications
CPT/HCPCS: 36415; 80048; 82043; 82570; 83036; 84156